=== PATIENT | female | born 1975 | race Caucasian/White ===

== ENCOUNTER 2018-05-19 09:55 | Day surgery (SDC) | payer OTHER ==
[2018-05-19] MEDS: BUPIVACAINE 0.25%/EPI (SDV) 30 ML INJ INJ
[2018-05-19] MEDS ORDERED: CLINDAMYCIN 600 MG/D5W (PMX) 50 ML IVPB (11:00)
[2018-05-19] MEDS ORDERED: BUPIVACAINE 0.25%/EPI (SDV) 30 ML INJ (11:34)
[2018-05-19] MEDS ORDERED: ALBUTEROL 0.083% (NEB) 2.5 MG/3 ML AMP HHN (12:00)
[2018-05-19] MEDS ORDERED: OXYCODONE/ACETAMINOPHEN (5/325) TAB PO ×2 (12:00)
[2018-05-19] MEDS ORDERED: TRIMETHOBENZAMIDE 100 MG/ML VIAL IM (12:00)
[2018-05-19] MEDS ORDERED: hydrALAzine 20 MG INJ IV (12:00)
[2018-05-19] MEDS ORDERED: MIDAZOLAM 1 MG/ML 2 ML INJ IV (12:00)
[2018-05-19] MEDS ORDERED: FENTAnyl 50 MCG/ML VIAL IV ×3 (12:00)
[2018-05-19] MEDS ORDERED: LABETALOL HCL 20MG INJ IV (12:00)
[2018-05-19] MEDS ORDERED: IPRATROPIUM (NEB) 0.5 MG/2.5 ML AMP HHN (12:00)
[2018-05-19] MEDS ORDERED: EPHEDrine SULFATE 50 MG/5 ML SYG IV (12:00)
[2018-05-19] MEDS ORDERED: DIPHENHYDRAMINE 50 MG INJ IV (12:00)
[2018-05-19] MEDS ORDERED: HYDROmorphONE 1 MG/5 ML IV SYRINGE IV ×3 (12:00)
[2018-05-19] MEDS ORDERED: NEOSTIGMINE 3 MG/3 ML SYRINGE (12:02)
[2018-05-19] MEDS ORDERED: GLYCOPYRROLATE 0.4 MG INJ (12:02)
[2018-05-19] MEDS ORDERED: ROCURONIUM 50 MG INJ (12:02)
[2018-05-19] MEDS ORDERED: CEFAZOLIN 1 GM INJ (12:02)
[2018-05-19] MEDS ORDERED: PROPOFOL 20 ML (12:02)
[2018-05-19] MEDS ORDERED: MIDAZOLAM 1 MG/ML 2 ML INJ (12:04)
[2018-05-19] MEDS ORDERED: FENTAnyl 50 MCG/ML VIAL (12:04)
[2018-05-19] MEDS ORDERED: ONDANSETRON 4 MG INJ (12:04)
[2018-05-19] MEDS ORDERED: DEXAMETHASONE 4 MG/ML 1 ML INJ (12:04)
[2018-05-19] MEDS ORDERED: METOCLOPRAMIDE 10 MG INJ (13:16)
[2018-05-19] MEDS ORDERED: KETOROLAC 30 MG INJ (13:19)
[2018-05-19] MEDS ORDERED: HYDROCODONE/APAP (5/325) TAB PO (13:30)
[2018-05-19] MEDS ORDERED: ONDANSETRON 4 MG INJ IV (13:30)
[2018-05-19] MEDS ORDERED: morphine 2 MG INJ IV (13:30)
[2018-05-19] MEDS ORDERED: IBUPROFEN 600 MG TAB PO (13:30)
[2018-05-19] MEDS ORDERED: KETOROLAC 30 MG INJ IV (13:30)
[2018-05-19] MEDS: SOD CHLORIDE 0.9% 1,000 ML IV (13:52)
[2018-05-19] MEDS: ONDANSETRON 4 MG INJ IV (13:54)
[2018-05-19] MEDS: MEPERIDINE 25 MG INJ IV (14:07)
[2018-05-19] MEDS: HYDROCODONE/APAP (5/325) TAB PO (15:06)
== END 2018-05-19 15:10 | disposition home or self-care (01) ==
LOC: SDS 09:55
DX: K80.10 Calculus of gallbladder with chronic cholecystitis without obstruction (principal); J45.909 Unspecified asthma, uncomplicated; E66.9 Obesity, unspecified
CPT/HCPCS: 47562; 88304